=== PATIENT | female | born 1985 | race Hispanic/Latino ===

== ENCOUNTER 2021-11-12 14:18 | Emergency (ER) | payer SELFPAY | END 2021-11-12 15:43 | LOC: ERS 14:18 | DX: Z53.21 Procedure and treatment not carried out due to patient leaving prior to being seen by health care provider (principal) ==

== ENCOUNTER 2021-11-14 19:28 | Emergency (ER) | payer SELFPAY | END 2021-11-14 20:29 | disposition home or self-care (01) | LOC: ERS 19:28 | DX: H92.02 Otalgia, left ear (principal) | CPT/HCPCS: 99281 ==